=== PATIENT | female | born 1985 ===

== ENCOUNTER 2016-10-07 09:31 | Emergency (ER) | payer SELFPAY ==
[2016-10-07 09:52] VITALS: BP 117/74
== END 2016-10-07 09:49 | disposition left against medical advice (07) ==
LOC: ED 09:31
DX: K62.5 Hemorrhage of anus and rectum (principal); J45.909 Unspecified asthma, uncomplicated; J44.9 Chronic obstructive pulmonary disease, unspecified; F17.200 Nicotine dependence, unspecified, uncomplicated; Z53.21 Procedure and treatment not carried out due to patient leaving prior to being seen by health care provider